=== PATIENT | male | born 1960 | race Caucasian/White ===

== ENCOUNTER 2023-01-27 08:08 | Day surgery (SDC) | payer OTHER ==
[2023-01-27 08:46] VITALS: RESP 16; TEMP 97.2
[2023-01-27] MEDS: LACTATED RINGERS 1,000 ML IV SCH ×2 (08:54→09:08)
[2023-01-27] MEDS ORDERED: LIDOCAINE 2% INJ 20 MG/ML (2 ML VIAL) ONE (09:13)
[2023-01-27] MEDS ORDERED: PROPOFOL 10 MG/ML 20 ML VIAL IV ONE (09:13)
--- NOTE | 2023-01-27 09:32 | P.PCN ---
Date of Procedure: 01/27/23 Procedure(s) Performed: BRIEF HISTORY: Patient is a 62-year-old, pleasant, white male scheduled for an upper endoscopy as a part of evaluation of intermittent dysphagia to solids for the last 1 year duration.. PROCEDURE PERFORMED: Esophagogastroduodenoscopy with biopsy and dilation. PREOPERATIVE DIAGNOSIS: Intermittent dysphagia to solids of 1 year duration. IV sedation per anesthesia. PROCEDURE: After informed consent was obtained, the patient was brought into the endoscopy unit. IV sedation was administered by Anesthesia under continuous monitoring. Initially the Olympus GIF-140 video endoscope was inserted into the mouth. Esophagus intubated without any difficulty. It was gradually advanced into the mid esophagus at 25 cm from the incisors there was a tight suture identified and was not able to advance the scope any further. The mucosa the site of the stricture appeared very smooth with no erosions or ulcerations. At this time I proceeded with balloon dilation using 10-12 mm TTS balloon in a sequential fashion for 1 minute. Falling dilation there was some oozing identified. At this time was able to advance the scope into the the stomach and duodenum and carefully examined. The bulb and the second part of the duodenum appeared normal. The scope at this time was withdrawn to the stomach, adequately insufflated with air, and upon careful examination, mucosa of the antrum, body, cardia and the fundus appeared normal. The scope was then withdrawn into the esophagus. Small hiatal hernia noted. The GE junction was located at 39 cm from the incisors. The esophagus had multiple mucosal superficial rings in the mid and distal esophagus and biopsies were done to evaluate for eosinophilic esophagitis. The proximal esophagus appeared normal and the patient tolerated the procedure well. IMPRESSION: 1. Tight mid esophageal stricture at 25 cm from the incisors status post balloon dilation using 10-12 mm TTS balloon as described above. 2. Multiple superficial mucosal rings involving the entire esophagus with somewhat thickened esophageal folds suspicious for eosinophilic esophagitis status post multiple biopsies. 3. Small hiatal hernia RECOMMENDATIONS: The findings of this examination were discussed with the patient as well as a family. He was advised to follow with the biopsy results. He will remain on a clear liquid diet for lunch today. He'll be seen in office in 2 weeks.
[2023-01-27] MEDS ORDERED: hydrALAZINE HCL 20 MG/ML 1 ML VIAL ONE ×2 (09:56→10:57)
[2023-01-27] MEDS ORDERED: hydrALAZINE HCL 20 MG/ML 1 ML VIAL IVP ONE (09:58)
[2023-01-27] MEDS ORDERED: METOPROLOL TARTRATE 5 MG/5 ML VIAL IVP ONE (10:25)
[2023-01-27 11:34] VITALS: BP 130/87; PULSE 82
== END 2023-01-27 11:34 | disposition home or self-care (01) ==
LOC: ORWHC2ENDO 08:08
PROVIDERS: ATTEND Internal Medicine Gastroenterology
DX: K22.2 Esophageal obstruction (principal); K44.9 Diaphragmatic hernia without obstruction or gangrene; K21.00 Gastro-esophageal reflux disease with esophagitis, without bleeding; I10 Essential (primary) hypertension; E78.5 Hyperlipidemia, unspecified; F17.210 Nicotine dependence, cigarettes, uncomplicated; R56.9 Unspecified convulsions; Z79.52 Long term (current) use of systemic steroids; Z79.811 Long term (current) use of aromatase inhibitors; Z79.899 Other long term (current) drug therapy
CPT/HCPCS: 88305; 88312; 43239; 43249; J0360; J2704; J2001; C1726

== ENCOUNTER 2023-04-07 10:53 | Day surgery (SDC) | payer OTHER ==
[2023-04-07] MEDS ORDERED: LACTATED RINGERS 1,000 ML IV ONE (11:45)
[2023-04-07 12:31] VITALS: RESP 16; TEMP 98
[2023-04-07] MEDS ORDERED: IPRATROPIUM-ALBUTEROL 3 ML NEB ONE (12:36)
[2023-04-07] MEDS ORDERED: IPRATROPIUM-ALBUTEROL 3 ML NEB INHALATION STA (12:48)
[2023-04-07] MEDS ORDERED: PROPOFOL 10 MG/ML 20 ML VIAL IV ONE (13:20)
[2023-04-07] MEDS ORDERED: LIDOCAINE 2% (PF) 20 MG/ML 5 ML VIAL ONE (13:20)
--- NOTE | 2023-04-07 13:30 | P.PCN ---
Date of Procedure: 04/07/23 Procedure(s) Performed: BRIEF HISTORY: Patient is a 62-year-old, pleasant, male scheduled for an upper endoscopy with dilation as a part of evaluation of dysphagia. His last EGD with dilation was done in January. Ferritin was noted to have a tight mid esophageal stricture.. PROCEDURE PERFORMED: Esophagogastroduodenoscopy with dilation. PREOPERATIVE DIAGNOSIS: Dysphagia/esophageal stricture. IV sedation per anesthesia. PROCEDURE: After informed consent was obtained, the patient was brought into the endoscopy unit. IV sedation was administered by Anesthesia under continuous monitoring. Initially the Olympus GIF-140 video endoscope was inserted into the mouth. Esophagus intubated without any difficulty. It was gradually advanced into the midesophagus and scope could not be advanced any further because of mid esophageal stricture at 25 cm from the incisors. At this time I proceeded with balloon dilation using 10-12 mm TTS balloon for 30 seconds. Following this there was small mucosal tear identified. Further dilation was not performed. At this time was able to advance the scope into the stomach and duodenum and carefully examined. The bulb and the second part of the duodenum appeared normal. The scope at this time was withdrawn to the stomach, adequately insufflated with air, and upon careful examination, mucosa of the antrum, body, cardia and the fundus appeared normal. The scope was then withdrawn into the esophagus. The GE junction was located at 39 cm from the incisors. Multiple mucosal inserted in the distal esophagus and there was once erosion the distal esophagus consistent with LA grade a reflux esophagitis. Once again the midesophagus which was identified and no active bleeding noted. The proximal esophagus appeared normal and the patient tolerated the procedure well. IMPRESSION: 1. Mid esophageal stricture status post balloon dilation using 10-12 mm TTS balloon as described above. 2. Multiple superficial mucosal rings involving the entire esophagus 3. Superficial erosion in the distal esophagus consistent with LA grade a reflux esophagitis. RECOMMENDATIONS: The findings of this examination were discussed with the patient as well as his family. He was advised to be on clear liquid diet for 2 hours. Continue with omeprazole 20 mg daily and follow antrum reflux measures. Follow up in office in 3 months..
[2023-04-07 13:55] VITALS: BP 150/95; PULSE 94
== END 2023-04-07 14:15 ==
LOC: ORWHC2ENDO 10:53
PROVIDERS: ATTEND Internal Medicine Gastroenterology
DX: K22.2 Esophageal obstruction (principal); I10 Essential (primary) hypertension; E78.5 Hyperlipidemia, unspecified; F17.210 Nicotine dependence, cigarettes, uncomplicated; G40.89 Other seizures; K21.9 Gastro-esophageal reflux disease without esophagitis; Z79.83 Long term (current) use of bisphosphonates; Z79.811 Long term (current) use of aromatase inhibitors; Z79.899 Other long term (current) drug therapy
CPT/HCPCS: 43249; J2704; J2001; C1726

== ENCOUNTER 2024-08-29 07:35 | Day surgery (SDC) | payer OTHER ==
[2024-08-25 18:07] VITALS: BMI 23.3
[2024-08-29] MEDS: IV FLUID CONTINUATION 1,000 ML IV ONE (08:03)
[2024-08-29 08:06] VITALS: TEMP 97.2
[2024-08-29] MEDS: LACTATED RINGERS 1,000 ML IV SCH (08:14)
[2024-08-29] MEDS ORDERED: PROPOFOL 10 MG/ML 20 ML VIAL IV ONE (09:14)
--- NOTE | 2024-08-29 09:27 | P.PCN ---
Date of Procedure: 08/29/24 Procedure(s) Performed: BRIEF HISTORY: Patient is a 64-year-old, pleasant, white male scheduled endoscopy as a part evaluation of progressive dysphagia to solids for the last several years duration. Her last EGD with dilation was done in April 2023 and was noted to have a mid and distal esophageal stricture that was dilated.. PROCEDURE PERFORMED: Esophagogastroduodenoscopy with biopsy and dilation. PREOPERATIVE DIAGNOSIS: Dysphagia and history of esophageal stricture. IV sedation per anesthesia. PROCEDURE: After informed consent was obtained, the patient was brought into the endoscopy unit. IV sedation was administered by Anesthesia under continuous monitoring. Initially the Olympus GIF-140 video endoscope was inserted into the mouth. Esophagus intubated without any difficulty. It was gradually advanced into the mid esophagus where there was a tight stricture identified and the scope could not be advanced to the stricture. This was located 25 cm from the incisors and balloon dilation was performed using 10 to 12 mm TTS balloon for 30 seconds. Following this I was able to advance the scope into the distal esophagus and there was another stricture identified at the GE junction which was once again dilated with a 10 to 12 mm TTS balloon. Following this I was able to advance the scope into the stomach and duodenum and carefully examined. The bulb and the second part of the duodenum appeared normal. The scope at this time was withdrawn to the stomach, adequately insufflated with air, and upon careful examination, mucosa of the antrum, body, cardia and the fundus appeared normal. The scope was then withdrawn into the esophagus. Small hiatal hernia noted. The GE junction was located at 39 cm from the incisors. There was a mucosal oozing noted at the site of dilation of the distal esophageal stricture. There were multiple mucosal rings noted throughout the entire esophagus and biopsies were done in the mid and proximal esophagus to evaluate for eosinophilic esophagitis. There was a small mucosal tear noted at the mid esophageal stricture but no bleeding identified. The rest of the esophagus appeared normal. There were no erosions or ulcerations seen and the patient tolerated the procedure well. IMPRESSION: 1. Mid esophageal stricture at 35 cm from the incisors status post balloon dilation using 10 to 12 mm TTS balloon. 2. Distal esophageal stricture status post balloon dilation using 10 to 12 mm balloon 3. Multiple superficial mucosal rings along the entire esophagus suspicious for eosinophilic esophagitis status post multiple biopsies. RECOMMENDATIONS: The findings of this examination were discussed with the patient as well as his family. He was advised to follow-up with the biopsy results. He will be seen in the office in 2 weeks.. In the meantime it was advised to start on omeprazole 20 mg daily and follow antireflux measures
[2024-08-29 09:36] VITALS: RESP 16
[2024-08-29 09:49] VITALS: BP 151/94; PULSE 77
== END 2024-08-29 10:14 | disposition home or self-care (01) ==
LOC: ORWHC2ENDO 07:35
PROVIDERS: ATTEND Internal Medicine Gastroenterology
DX: K22.2 Esophageal obstruction (principal); K20.90 Esophagitis, unspecified without bleeding; I10 Essential (primary) hypertension; E78.5 Hyperlipidemia, unspecified; J44.9 Chronic obstructive pulmonary disease, unspecified; G40.909 Epilepsy, unspecified, not intractable, without status epilepticus; M19.90 Unspecified osteoarthritis, unspecified site; F10.90 Alcohol use, unspecified, uncomplicated; F17.210 Nicotine dependence, cigarettes, uncomplicated; Z79.899 Other long term (current) drug therapy
CPT/HCPCS: 88305; 43239; 43249; J2704; C1726

== ENCOUNTER → 2024-10-18 | Outpatient (CLI) | payer OTHER ==
--- NOTE | 2024-10-18 10:31 | CTL ---
EXAMINATION TYPE: CT Low Dose Lung DATE OF EXAM: 10/18/2024 9:17 AM COMPARISON: None. CLINICAL INDICATION: Male, 64 years old with history of Z12.2 F17.210 NICOTINE DEPENDENCE, CIGARETTES , [employer]; SMOKER, history of tobacco use. TECHNIQUE: Multiple axial non-contrast scans were obtained from approximately the lung apices through the upper abdomen. Coronal and sagittal reformatted images were obtained. Low dose technique was uti lized. MIP were created on a separate workstation and submitted for review. CT DLP: 105.6 mGycm, Automated exposure control for dose reduction was used. CT Contrast: Contrast used: None Oral contrast used: None FINDINGS: Lack of intravenous contrast and low dose technique limits the evaluation of the vascular and soft ti ssue structures. LUNGS: No evidence of pulmonary fibrosis. No evidence of focal consolidation, pneumothorax or pleural effusion. Centrilobular emphysema changes. Nodules: RUL: None. RML: None. RLL: None. NERISSA: None. LLL: None. AIRWAY: Patent and unremarkable. HEART: Size within normal limits. Moderate to severe aortic valve calcifications. No significant karen nary artery calcifications. MEDIASTINUM: No gross evidence of adenopathy. VASCULATURE: No aortic aneurysm. MUSCULOSKELETAL: Moderate disc degeneration changes are present throughout the thoracolumbar spine. R emote right rib fractures. SOFT TISSUES/LYMPH NODES: Unremarkable. LOWER NECK: No significant findings. UPPER ABDOMEN: No significant findings. IMPRESSION: 1. No clinically significant pulmonary nodules. 2. Mild emphysema. 3. Moderate to severe aortic valve calcifications. CT LUNG RAD AND CT CHEST RECOMMENDATION: Lung-Rad 1 Negative: Continue annual screening with LDCT in 12 months. S Modifier (other clinically significant findings): None Recommend smoking cessation (if current smoker), or continuation of smoking cessation (if prior smoke r). Annual screening for lung cancer with low-dose computed tomography is recommended in adults ages 55 to 77 years who have a 30 pack-year smoking history and currently smoke or have quit within the pa st 15 years. Screening should be discontinued once a person has not smoked for 15 years or develops a health problem that substantially limits life expectancy or the ability or willingness to have curat rodolfo lung surgery. Lung rads 2021 [email or web address] [email or web address], , 10/18/2024 10:29 AM
== END | disposition home or self-care (01) ==
LOC: RADCTMAIN 08:50
PROVIDERS: ATTEND Emergency Medicine
DX: Z12.2 Encounter for screening for malignant neoplasm of respiratory organs (principal); F17.210 Nicotine dependence, cigarettes, uncomplicated; J43.2 Centrilobular emphysema; I35.0 Nonrheumatic aortic (valve) stenosis
CPT/HCPCS: 71271